=== PATIENT | female | born 1970 | race Caucasian/White ===

== ENCOUNTER → 2018-02-27 11:41 | Outpatient (CLI) | payer BC, SELFPAY ==
--- NOTE | 2018-02-27 11:45 | XR_ITS ---
XR ankle RT min 3V HISTORY: Pain following injury ITS.REASON: Injury right ankle ORDERING PHYSICIAN: GILDA Mcginnis PATIENT AGE: 47 years FINDINGS: There is a nondisplaced oblique fracture of the distal shaft of the fibula exiting at the level the ankle joint. The ankle mortise does not appear widened. There is nondisplaced avulsion fracture involving the tip of the medial malleolus. IMPRESSION: 1. Nondisplaced oblique fracture distal fibula with associated avulsion fracture of the tip of the medial malleolus
--- NOTE | 2018-02-27 11:45 | XR_ITS ---
XR tibia fibula RT 2V CLINICAL INDICATION: Pain following injury ITS.REASON: Injury right ankle ORDERING PHYSICIAN: GILAD Mcginnis PATIENT AGE: 47 years FINDINGS: There is nondisplaced oblique fracture of the distal fibula exiting medially at the level of the ankle joint with an associated nondisplaced avulsion fracture at the tip of the medial malleolus. The proximal mid aspect of the tibia and fibula have an unremarkable appearance. IMPRESSION: Nondisplaced oblique distal fibular fracture and avulsion fracture of the medial malleolus
== END ==
PROVIDERS: PCP Physician Assistant; Visit Provider Physician Assistant
DX: S99.911A Unspecified injury of right ankle, initial encounter (principal)
CPT/HCPCS: 73590; 73610

== ENCOUNTER → 2018-03-01 10:48 | Outpatient (CLI) | payer BC, SELFPAY ==
--- NOTE | 2018-03-01 11:04 | XR_ITS ---
XR ankle RT min 3V HISTORY: Follow-up fracture ITS.REASON: Right ankle fracture xray in cast ORDERING PHYSICIAN: Lc Avila MD PATIENT AGE: 47 years COMPARISON: 02/27/2018 FINDINGS: Study is obtained through a cast. Nondisplaced oblique distal fibular fracture and nondisplaced avulsion fracture tip of the medial malleolus once again noted. There remains good alignment. IMPRESSION: Good alignment status post placement of a cast of the distal fibular and medial malleolus fracture
== END ==
PROVIDERS: PCP Physician Assistant; Visit Provider Orthopaedic Surgery
DX: S82.301A Unspecified fracture of lower end of right tibia, initial encounter for closed fracture (principal)
CPT/HCPCS: 73610

== ENCOUNTER → 2018-03-08 12:07 | Outpatient (CLI) | payer BC, SELFPAY ==
--- NOTE | 2018-03-08 12:08 | XR_ITS ---
XR ankle RT min 3V HISTORY: Follow-up fracture ITS.REASON: 1 week follow up from being casted ORDERING PHYSICIAN: Lc Avila MD PATIENT AGE: 47 years COMPARISON: 03/01/2018 FINDINGS: There is an oblique mildly displaced fracture involving the distal aspect of the fibula as previously described. No significant callus formation. There is good alignment. Study is obtained through a cast. Avulsion fracture of the tip of the medial malleolus probably simple IMPRESSION: Overall no change minimal displaced oblique fibular fracture
== END ==
LOC: RAD 12:08
PROVIDERS: PCP Physician Assistant; Visit Provider Orthopaedic Surgery
DX: S82.301A Unspecified fracture of lower end of right tibia, initial encounter for closed fracture (principal)
CPT/HCPCS: 73610

== ENCOUNTER → 2018-03-16 10:54 | Outpatient (CLI) | payer BC, SELFPAY ==
--- NOTE | 2018-03-16 11:05 | XR_ITS ---
XR ankle RT min 3V Ordering Physician: Lc Avila MD Patient Age: 47 years: Female HISTORY: ITS.REASON: visualize ankle fracture TECHNIQUE: 3 views right ankle COMPARISON :03/08/2018 right ankle series. & 02/27/2018 FINDINGS Cast is been removed with today's study. A stable oblique fracture at the distal fibula again noted . Stable mild distraction & Mild cortical offset. At this fracture. Suspect very early healing. Position and alignment appear stable. The tibial-fibular relationships appear satisfactory. Relationships ankle mortise appear satisfactory. Associated very subtle fracture at the tip of the medial malleolus is again noted stable position. Swelling about the ankle has diminished since earlier studies Generous spurring at insertion Achilles tendon as well as a plantar calcaneal spur again noted. Unchanged IMPRESSION: . Stable position of oblique fracture distal fibula and the tiny fracture off tip of medial malleolus .. hint of very early healing at the distal fibular fracture.
== END ==
PROVIDERS: PCP Physician Assistant; Visit Provider Orthopaedic Surgery
DX: S99.911A Unspecified injury of right ankle, initial encounter (principal)
CPT/HCPCS: 73610

== ENCOUNTER → 2018-03-29 10:56 | Outpatient (CLI) | payer BC, SELFPAY ==
--- NOTE | 2018-03-29 10:59 | XR_ITS ---
XR ankle RT min 3V HISTORY: Follow-up fracture ITS.REASON: RIGHT ANKLE FX ORDERING PHYSICIAN: Lc Avila MD PATIENT AGE: 47 years Comparison: 03/16/2018 FINDINGS: Minimally displaced oblique fracture once again noted involving the distal aspect of the fibula. The distal fracture fragment is displaced laterally x 2 mm as before. Fracture line appears somewhat less apparent suggesting early healing. There is good alignment. Nondisplaced avulsion fracture of the tip of the medial malleolus once again noted. IMPRESSION: Healing oblique distal fibular fracture. Nondisplaced avulsion fracture tip of the medial malleolus
== END ==
PROVIDERS: PCP Physician Assistant; Visit Provider Orthopaedic Surgery
DX: S82.301A Unspecified fracture of lower end of right tibia, initial encounter for closed fracture (principal)
CPT/HCPCS: 73610

== ENCOUNTER 2018-03-29 11:59 | Outpatient (RCR) | payer BC, SELFPAY | END 2018-03-29 15:53 | disposition home or self-care (01) | LOC: PT 11:59 | PROVIDERS: Family Provider Physician Assistant; PCP Physician Assistant; Visit Provider Orthopaedic Surgery | DX: S82.301A Unspecified fracture of lower end of right tibia, initial encounter for closed fracture (principal) | CPT/HCPCS: 97760 ==

== ENCOUNTER → 2018-05-01 09:48 | Outpatient (CLI) | payer BC, SELFPAY ==
--- NOTE | 2018-05-01 09:50 | XR_ITS ---
XR ankle RT min 3V HISTORY: Follow-up fracture ITS.REASON: RT ankle fracture ORDERING PHYSICIAN: Lc Avila MD PATIENT AGE: 48 years Comparison: 03/29/2018 FINDINGS: Healing nondisplaced oblique fracture involves the distal fibula as before. No significant callus formation. Fracture line is somewhat obscured however. IMPRESSION: Overall no change healing distal fibular fracture nondisplaced
== END ==
PROVIDERS: PCP Physician Assistant; Visit Provider Orthopaedic Surgery
DX: S82.301A Unspecified fracture of lower end of right tibia, initial encounter for closed fracture (principal)
CPT/HCPCS: 73610

== ENCOUNTER 2019-05-04 13:34 | Observation (INO) ==
--- NOTE | 2019-05-04 13:55 | Emergency Department Note ---
ED Disposition Clinical Impression: Chest pain, Hypertension, Hypothyroid, Cameron's thyroiditis Disposition: Still a Patient Condition on Discharge: Fair Referrals: Shobha Loomis PA [Primary Care Provider] - - Critical Care Critical Care Time: No Attestation: On 05/04/19, the high probability of a clinically significant, sudden or life threatening deterioration of the following system(s) required my full and direct attention, intervention and personal management. The time I documented below is in addition to time spent performing reported procedures but includes the following listed in this critical care notation. Medical Decision Making - Gee Inquiry Pt receiving controlled substance: No Gee was queried for this patient: No Vital Signs: 05/04/19 13:37 05/04/19 14:05 05/04/19 14:26 Temperature 97.9 F Temperature Source Oral Pulse Rate [Right Brachial] 78 69 Respiratory Rate 20 68 H Blood Pressure [Right Arm] 193/105 H 150/111 H 150/83 H Blood Pressure Mean [Right Arm] 134 124 105 Blood Pressure Source [Right Arm] Automatic Cuff Blood Pressure Position [Right Arm] Sitting 02 Sat by Pulse Oximetry 97 100 100 Oxygen Delivery Method Room Air 05/04/19 14:51 05/04/19 15:48 05/04/19 16:12 Temperature Temperature Source Pulse Rate [Right Brachial] 64 63 66 Respiratory Rate Blood Pressure [Right Arm] 137/82 149/82 H 135/82 Blood Pressure Mean [Right Arm] 100 104 99 Blood Pressure Source [Right Arm] Blood Pressure Position [Right Arm] 02 Sat by Pulse Oximetry 99 98 95 Oxygen Delivery Method - Lab Data Lab Results 05/04/19 13:44: WBC 7.3, RBC 4.78, Hgb 13.6, Hct 42.0, MCV 87.9, MCH 28.4, MCHC 32.3, RDW 12.4, Plt Count 306, MPV 6.9 L, Neut % (Auto) 56.5, Lymph % (Auto) 36.0, [place] % (Auto) 4.6, Eos % (Auto) 2.0, Baso % (Auto) 0.9, Neut # (Auto) 4.1, Lymph # (Auto) 2.6, [place] # (Auto) 0.3, Eos # (Auto) 0.1, Baso # (Auto) 0.1 05/04/19 13:44: Sodium 140, Potassium 3.8, Chloride 104, Carbon Dioxide 25, Anion Gap 14.8, BUN 16, Creatinine 0.94, Estimated Creat Clear 106, Estimated GFR 63, Est GFR ( Amer) 76, Glucose 101, Calcium 9.5, Troponin I < 0.02, TSH 3.84 H, Free T4 Index 1.9 L, Thyroxine (T4) 6.0, T3 Uptake 31 05/04/19 13:44: B-Natriuretic Peptide 11 05/04/19 13:44: Total Bilirubin 0.3, Direct Bilirubin 0.1, Indirect Bilirubin 0.2, AST 20, ALT 44, Alkaline Phosphatase 88, Total Protein 7.7, Albumin 3.8 05/04/19 13:44: PT 9.9, INR 0.95, APTT 27.1 05/04/19 13:44: D-Dimer < 100 Result diagrams: 05/04/19 13:44 05/04/19 13:44 Orders (Tests/Meds): ED MEDICATIONS Generic Name Dose Route Start Last Admin Trade Name Christian PRN Reason Stop Dose Admin Aspirin 325 mg 05/05/19 09:00 05/04/19 14:13 Aspirin Ec 325mg Tablet PO 06/04/19 08:59 325 mg DAILY SAMANTHA Administration Sodium Chloride 2 ml 05/04/19 13:59 Saline Flush 10ml Syringe IV 06/03/19 13:58 NEEDED PRN to Dilute Lorazepam inj Sodium Chloride 10 ml 05/04/19 13:59 Saline Flush 10ml Syringe IV 06/03/19 13:58 NEEDED PRN Maintain IV Site Discontinued Medications Generic Name Dose Route Start Last Admin Trade Name Christian PRN Reason Stop Dose Admin Sodium Chloride 1,000 mls @ 500 mls/hr 05/04/19 14:00 05/04/19 14:13 Sod Chlor 0.9% 1000ml Bag IV 05/04/19 15:59 500 mls/hr .Q2H SAMANTHA Administration Ioversol 70 ml 05/04/19 15:19 05/04/19 15:21 Rad-Optiray 350 100ml Vial IV 05/04/19 15:20 70 ml ONCE ONE Administration Protocol Lorazepam 1 mg 05/04/19 13:59 05/04/19 14:13 Ativan 2mg/Ml Vial IV 05/04/19 14:00 1 mg ONCE ONE Administration Nitroglycerin 0.5 gm 05/04/19 13:59 05/04/19 14:13 Nitroglycerin 1 Inch Oint Udp TD 05/04/19 14:00 0.5 gm ONCE ONE Administration Sodium Chloride 10 ml 05/04/19 15:19 05/04/19 15:21 Rad-Saline Flush 10ml Syringe IV 05/04/19 15:20 10 ml ONCE ONE Administration Sodium Chloride 50 ml 05/04/19 15:19 05/04/19 15:21 Rad-Ns 50ml Vial IV 05/04/19 15:20 50 ml ONCE ONE Administration ORDERS Category Date Time Status CT Chest w/PE protocol [CT angio chest] Stat Cat Scan 05/04/19 14:01 Taken - Radiology Data #1 Image(s): Chest Image Reviewed: Yes I reviewed the patient's radiology image - ECG Data Tracing #1 Patient EKG was normal sinus 74/min baseline artifact no acute ST segment or T wave changes. ECG initial impression date: 05/04/19 ECG initial impression time: 13:35 Medical Decision Narrative: She received enteric-coated aspirin Nitropaste and Ativan 1 mg with gradual decline of her systolic blood pressure to 135mmhg. also her chest pain was reduced to 2/10. Admitted to the nursing staff that she has been taking her thyroid medicine. [address] Alcantara was covering for Dr. Shipman who agreed to admit the patient for rule out MA and blood pressure monitoring. Chest Pain HPI - General Chief Complaint: Chest Pain Stated Complaint: MID BACK PAIN RADIATING TO RIGHT CHEST Time Seen by Provider: 05/04/19 13:40 Mode of Arrival: Ambulatory Source of Information: Patient, Spouse Limitations: No Limitations Description of Symptoms (Recalled from ER Triage Doc. by RN): C/O MID BACK PAIN SINCE THIS AM WITH RADIATION TO MIDCHEST/RIGHT CHEST AND OCCASIONALLY NUMBNESS OF JAW. HASNT TAKEN THYROID DIRECTED FOR LAST SEVERAL WEEKS DUE TO RAPID HEARTRATE - History of Present Illness HPI narrative: 49 years old white female non smoker with history of hypothyroidism and surgical menopause. Today at 830 the patient developed mid back pain tight in character radiating was worse with bilateral upper extremity movement and relieved by rest. 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 ED the patient's blood pressure systolic was 193/105 mmhg. Pain was rated 5/10 and was reduced by nitroglycerin, Ativan and aspirin to 4/10. Patient is currently under a lot of stress and she wanted to be checked. MD complaint: chest pain Onset (ago): hour(s) Time: 08:30 Duration: constant Pain location: right chest Severity: moderate Severity scale (1-10): 8 Quality: dull Pain radiation: RUE - Related Data Allergies Allergy/AdvReac Type Severity Reaction Status Date / Time Penicillins Allergy Intermediate FACIAL Verified 02/14/19 10:46 FLUSHING, HIVES, RASH [facility] History - Hepatitis A Screen Drug use history?: No High risk sexual behaviors?: No History of sexually transmitted infection?: No Currently employed?: No Childcare worker?: No Do you have indoor plumbing?: Yes Do you have electricity?: Yes Attestation statement:: This patient has been screened for Hepatitis A risk factors. I have reviewed the patient's past medical history: Yes Medical History: Reports:: Hyperlipidemia Other Medical History: Reports: Hypothyroidism Other Surgeries: Yes: , Hysterectomy-Total, Other Amputation: No Fractures: Yes Comment: Ovarian wedge-1992 - Social History Smoking Status: Never smoker Alcohol Intake: never Occupational Status: employed Housing: house Household Members: family Family Hx:: Diabetes, Stroke, Heart Attack, Hyperlipidemia, Hypertension, Coronary Artery Disease ROS Obtained: Yes All systems reviewed & no additional complaints Physical Exam - General General appearance: alert, in no apparent distress, anxious, other (Patient is tearful.) - Head Head exam: atraumatic, normocephalic, normal inspection - Eye Eye exam: Present: normal appearance, PERRL, EOMI - ENT ENT exam: Present: normal exam, normal oropharynx, mucous membranes moist, TM's normal bilaterally, normal external ear exam - Neck Neck exam: Present: normal inspection, full ROM, trachea midline. Absent: meningismus, lymphadenopathy - Chest Chest inspection: Present: normal inspection, symmetric chest wall rise. Absent: tenderness - Respiratory Respiratory exam: Present: normal lung sounds bilaterally. Absent: respiratory distress - Cardiovascular Cardiovascular exam: Present: regular rate, normal rhythm. Absent: JVD - Abdominal Exam Abdominal exam: Present: soft, normal bowel sounds. Absent: distention, tenderness, guarding - Extremities Exam Extremities exam: Present: normal inspection, full ROM, normal capillary refill. Absent: calf tenderness - Back Exam Back exam: Present: normal inspection. Absent: tenderness - Neurological Exam Neurological exam: Present: alert, oriented X3 - Psychiatric Psychiatric exam: Present: normal affect, normal mood - Skin Skin exam: Present: warm, dry, intact, normal color - Lymphatic Lymphatic Findings: no adenopathy
[2019-05-04 14:40] LABS: Basophils # 0.1 K/mm3 (0-0.2); Basophils % 0.9 % (0.1-2.0); Eosinophils # 0.1 K/mm3 (0.0-0.4); Hemoglobin 13.6 g/dL (12.2-16.2); Lymphocytes # 2.6 K/mm3 (0.7-4.5); Mean Corpuscular HGB Conc 32.3 g/dL (31.8-35.4); Mean Corpuscular Volume 87.9 fl (81-99); Mean Platelet Volume 6.9 fl (7.4-10.4); Monocytes # 0.3 K/mm3 (0.1-1.0); Monocytes % 4.6 % (1.7-9.3); Neutrophils # 4.1 K/mm3 (1.8-7.8); Neutrophils % 56.5 % (37.0-80.0); Platelet Count 306 K/mm3 (142-424); Red Blood Count 4.78 M/mm3 (4.20-5.40); Red Cell Distribution Width 12.4 % (11.5-17.5); White Blood Count 7.3 K/mm3 (4.8-10.8)
[2019-05-04 14:42] LABS: Activated Partial Thrombo Time 27.1 seconds (23.6-34.0); INR 0.95 (0.9-1.1); Prothrombin Time 9.9 seconds (9.4-11.8)
[2019-05-04 14:48] LABS: Albumin Level 3.8 gm/dL (3.4-5.0); Bilirubin,Direct 0.1 mg/dL (0.0-0.2); Bilirubin,Indirect 0.2 mg/dL (0.0-0.9); Bilirubin,Total 0.3 mg/dL (0.2-1.0); Total Protein,Serum 7.7 gm/dL (6.4-8.2)
[2019-05-04 14:53] LABS: Anion Gap 14.8 mEq/L (5-15); Blood Urea Nitrogen 16 mg/dL (7-18); Calcium 9.5 mg/dL (8.5-10.1); Carbon Dioxide 25 mmol/L (21.0-32.0); Chloride 104 mmol/L (98-107); Free Thyroxine Index 1.9 ug/dL (5.93-13.13); Glucose 101 mg/dL (74-106); Sodium 140 mmol/L (136-145); Thyroid Stimulating Hormone 3.84 uIU/ml (0.358-3.740); Triiodothryronine (T3) Uptake 31 % (31-39)
[2019-05-04 19:29] LABS: Microscopic, Urine URINE MICROSCOPIC (MICROSCOPIC)
[2019-05-04 19:40] LABS: Appearance,Urine CLEAR (Clear); Bilirubin,Urine Negative (Negative); Blood, Urine Negative (Negative); Color,Urine YELLOW (Yellow); Glucose,Urine (UA) Negative (Negative); Ketones,Urine Negative (Negative); Leukocyte Esterase,Urine Negative (Negative); PH,Urine 6.5 (5.0-8.5); Protein,Urine Negative (Negative); Specific Gravity, Urine <= 1.005 (1.005-1.030); Urobilinogen,Urine 0.2 EU/dl (0.2)
--- NOTE | 2019-05-04 20:29 | H&P/Discharge Summary ---
General - General Admission date:: 05/04/19 Discharge date: 05/04/19 *Admission Date: 05/04/19 *Chief complaint: Chest pain *History of present illness: 49-year-old white female with significant medical history of possible Cameron's thyroid disease. 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 Jean Baptiste's office and [place], [place]. She was placed on "natural thyroid" and a patch containing "natural female hormones" and she reportedly did well on this with normalized TSH. However, over the past year her job took her to [place] for several weeks and she stopped taking her medications. She is now back in the [facility] area but has not resumed any medications. Earlier this morning she had a very unusual but severe episode of back pain in the mid back that went to the front of her chest after her massaged her back in an attempt to relieve the pain, and she had some palpitations and understandable anxiety and came to the emergency department. Emergency work-up was extensive including laboratory studies that were normal including normal d-dimer, normal initial troponin testing and normal metabolic and hematologic labs, CT scan of chest was done to rule out PE because of her significant history of chest pain which was negative but revealed presence of a renal cyst. This prompted a CT of the abdomen and pelvis which showed unilateral hydronephrosis and probable dysfunction of the right kidney with a severely cystic kidney and hydronephrosis down to the right ureter. The left side looked fairly normal. Of note, patient is unaware of this diagnosis in the past. Patient was admitted to the hospital because of her "high risk status" in the opinion of the ER doctor. [facility] History I have reviewed the patient's past medical history: Yes Medical History: Reports:: Hyperlipidemia Denies:: Cancer, Diabetes Mellitus Type 1, Diabetes Mellitus Type 2, MRSA *Have you ever received a pneumonia vaccine?: No *Have you received a flu vaccine this season?: Yes Other Medical History: Reports: Hypothyroidism, Thyroid Disease Comment:: Estrogen deficiency Other Surgeries: Yes: , Hysterectomy-Total, Other Amputation: No Fractures: Yes - *Social History Educational Level: Completed College Smoking Status: Never smoker Alcohol Intake: never *Occupational Status:: employed Housing: house Household Members: family *Travel in the last 8 weeks: Inside the [place] - Psychiatric History Expresses thoughts of harming self/others: None Suicide Plan Description: No Plan Family Hx:: Diabetes, Stroke, Heart Attack, Hyperlipidemia, Hypertension, Coronary Artery Disease Review of Systems - Review of Systems Review of systems:: pertinent systems reviewed and negative unless documented below Negative for ENT symptomatology or rhinitis symptoms. Negative for pulmonary symptoms of shortness of air, cough or wheezing. Positive for chest pain as noted above, this has been complete relieved with a Toradol injection that I recommended to be given in the ER. GI negative for vomiting, diarrhea, constipation or stool changes. 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 Musculoskeletal positive for chest wall pain as noted above, Derm negative for rash. Exam Vital signs and Labs for Last 24 Hours: Temp Pulse Resp BP Pulse Ox 97.6 F 71 17 146/81 H 96 05/04/19 20:00 05/04/19 20:00 05/04/19 20:00 05/04/19 20:00 05/04/19 20:00 Laboratory Results - last 24 hr 05/04/19 13:44: WBC 7.3, RBC 4.78, Hgb 13.6, Hct 42.0, MCV 87.9, MCH 28.4, MCHC 32.3, RDW 12.4, Plt Count 306, MPV 6.9 L, Neut % (Auto) 56.5, Lymph % (Auto) 36.0, [place] % (Auto) 4.6, Eos % (Auto) 2.0, Baso % (Auto) 0.9, Neut # (Auto) 4.1, Lymph # (Auto) 2.6, [place] # (Auto) 0.3, Eos # (Auto) 0.1, Baso # (Auto) 0.1 05/04/19 13:44: Sodium 140, Potassium 3.8, Chloride 104, Carbon Dioxide 25, Anion Gap 14.8, BUN 16, Creatinine 0.94, Estimated Creat Clear 106, Estimated GFR 63, Est GFR ( Amer) 76, Glucose 101, Calcium 9.5, Troponin I < 0.02, TSH 3.84 H, Free T4 Index 1.9 L, Thyroxine (T4) 6.0, T3 Uptake 31 05/04/19 13:44: B-Natriuretic Peptide 05/04/19 13:44: Total Bilirubin 0.3, Direct Bilirubin 0.1, Indirect Bilirubin 0.2, AST 20, ALT 44, Alkaline Phosphatase 88, Total Protein 7.7, Albumin 3.8 05/04/19 13:44: PT 9.9, INR 0.95, APTT 27.1 05/04/19 13:44: D-Dimer < 100 05/04/19 17:27: Urine Color Yellow, Urine Appearance Clear, Urine pH 6.5, Ur Specific [place] <= 1.005, Urine Protein Negative, Urine Glucose (UA) Negative, Urine Ketones Negative, Urine Blood Negative, Urine Nitrate Negative, Urine Bilirubin Negative, Urine Urobilinogen 0.2, Ur Leukocyte Esterase Negative, Urine WBC 3-5 I & O for Last 24 hours: Intake & Output 05/02/19 05/03/19 05/04/19 05/05/19 11:59 11:59 11:59 11:59 Intake Total 240 / 240 Output Total 900 / 900 Balance -660 / -660 Weight 204 lb 3 oz Narrative: Patient is pleasant, talkative in no distress, denies pain at the time of my exam. Appears younger than her stated age, good dentition and good hygiene Lungs are clear. Heart rate regular. No murmurs, no edema or clubbing. Abdomen soft and nontender. Neurologic exam nonfocal. No JVD. No rash. Hospital Course Hospital Course: Patient was admitted even after the negative work-up in the ER. I examined her, her pain is totally resolved with NSAID treatment. I had a long discussions with her about her need to establish care with internal medicine and she is agreement that this needs to be done and she will establish care with our practice in the next week and a half and I have scheduled an viri ointment. I informed her about her CT scan results in regards to her kidney-she was unaware of this. I informed her we would make a urology appointment in the office. I have advised her to use warm compresses, topical analgesics such as Biofreeze and Tylenol for pain given her unknown kidney status at this point. Ordered another troponin and should this be negative since this will be 12 hours after the onset of her pain she will be discharged home. I anticipate this to be the case and do not feel that she has cardiac disease in any way shape or form. Results Labs on day of discharge: Labs from last 24 hours 05/04/19 05/04/19 05/04/19 17:27 13:44 13:44 WBC RBC Hgb Hct MCV MCH MCHC RDW Plt Count MPV Neut % (Auto) Lymph % (Auto) [place] % (Auto) Eos % (Auto) Baso % (Auto) Neut # (Auto) Lymph # (Auto) [place] # (Auto) Eos # (Auto) Baso # (Auto) PT 9.9 INR 0.95 APTT 27.1 D-Dimer < 100 Sodium Potassium Chloride Carbon Dioxide Anion Gap BUN Creatinine Estimated Creat Clear Estimated GFR Est GFR ( Amer) Glucose Calcium Total Bilirubin Direct Bilirubin Indirect Bilirubin AST ALT Alkaline Phosphatase Troponin I B-Natriuretic Peptide Total Protein Albumin TSH Free T4 Index Thyroxine (T4) T3 Uptake Urine Color Yellow Urine Appearance Clear Urine pH 6.5 Ur Specific [place] <= 1.005 Urine Protein Negative Urine Glucose (UA) Negative Urine Ketones Negative Urine Blood Negative Urine Nitrate Negative Urine Bilirubin Negative Urine Urobilinogen 0.2 Ur Leukocyte Esterase Negative Urine WBC 3-5 05/04/19 05/04/19 05/04/19 13:44 13:44 13:44 WBC RBC Hgb Hct MCV MCH MCHC RDW Plt Count MPV Neut % (Auto) Lymph % (Auto) [place] % (Auto) Eos % (Auto) Baso % (Auto) Neut # (Auto) Lymph # (Auto) [place] # (Auto) Eos # (Auto) Baso # (Auto) PT INR APTT D-Dimer Sodium 140 Potassium 3.8 Chloride 104 Carbon Dioxide 25 Anion Gap 14.8 BUN 16 Creatinine 0.94 Estimated Creat Clear 106 Estimated GFR 63 Est GFR ( Amer) 76 Glucose 101 Calcium 9.5 Total Bilirubin 0.3 Direct Bilirubin 0.1 Indirect Bilirubin 0.2 AST 20 ALT 44 Alkaline Phosphatase 88 Troponin I < 0.02 B-Natriuretic Peptide 11 Total Protein 7.7 Albumin 3.8 TSH 3.84 H Free T4 Index 1.9 L Thyroxine (T4) 6.0 T3 Uptake 31 Urine Color Urine Appearance Urine pH Ur Specific [place] Urine Protein Urine Glucose (UA) Urine Ketones Urine Blood Urine Nitrate Urine Bilirubin Urine Urobilinogen Ur Leukocyte Esterase Urine WBC 05/04/19 13:44 WBC 7.3 RBC 4.78 Hgb 13.6 Hct 42.0 MCV 87.9 MCH 28.4 MCHC 32.3 RDW 12.4 Plt Count 306 MPV 6.9 L Neut % (Auto) 56.5 Lymph % (Auto) 36.0 [place] % (Auto) 4.6 Eos % (Auto) 2.0 Baso % (Auto) 0.9 Neut # (Auto) 4.1 Lymph # (Auto) 2.6 [place] # (Auto) 0.3 Eos # (Auto) 0.1 Baso # (Auto) 0.1 PT INR APTT D-Dimer Sodium Potassium Chloride Carbon Dioxide Anion Gap BUN Creatinine Estimated Creat Clear Estimated GFR Est GFR ( Amer) Glucose Calcium Total Bilirubin Direct Bilirubin Indirect Bilirubin AST ALT Alkaline Phosphatase Troponin I B-Natriuretic Peptide Total Protein Albumin TSH Free T4 Index Thyroxine (T4) T3 Uptake Urine Color Urine Appearance Urine pH Ur Specific [place] Urine Protein Urine Glucose (UA) Urine Ketones Urine Blood Urine Nitrate Urine Bilirubin Urine Urobilinogen Ur Leukocyte Esterase Urine WBC DS: Diagnosis - Discharge Diagnosis (1) Hydronephrosis of right kidney Status: Chronic (2) Chest pain Status: Resolved (3) Hypothyroid Status: Chronic Discharge Plan - Patient Discharge Instructions ACTIVITY: Continue current activity DIET: continue same diet - Follow up Plan Follow up with: Liz Proctor APRN [Nurse Practitioner] - 05/15/19 9:00 am Disposition: Home, [facility] Medications: Home Medications Medication Instructions Recorded Confirmed Type Aspirin [Aspirin 81mg EC Tab] 81 mg PO DAILY tablet. 05/04/19 Rx Prescriptions/Medication Reconciliation: New Aspirin [Aspirin 81mg EC Tab] 81 mg PO DAILY tablet.
[2019-05-04 20:59] LABS: Creatine Kinase 123 U/L (26-192)
== END 2019-05-05 01:06 | disposition home or self-care (01) ==
LOC: ER 13:34 → 2ND 13:34
PROVIDERS: ADMIT Internal Medicine Adolescent Medicine; ATTEND Internal Medicine Adolescent Medicine
CPT/HCPCS: 36415; 71020; 71046; 71275; 74176; 80048; 80076; 81001; 82550; 82553; 83880; 84436; 84443; 84479; 84484; 85025; 85378; 85610; 85730; 93005; 96365; 96375; 99285; G0378; Q9967

== ENCOUNTER → 2019-05-23 14:16 | Outpatient (CLI) | payer BC, SELFPAY ==
[2019-05-23 14:40] LABS: Anion Gap 13.7 mEq/L (5-15); Blood Urea Nitrogen 12 mg/dL (7-18); Calcium 9.4 mg/dL (8.5-10.1); Carbon Dioxide 30 mmol/L (21.0-32.0); Chloride 104 mmol/L (98-107); Estimated Glomerular Filt Rate 58 ml/min (>60); GFR (African American) 71 ML/MIN (>60); Glucose 98 mg/dL (74-106); Potassium 3.7 mmoL/L (3.5-5.1); Sodium 144 mmol/L (136-145)
== END ==
PROVIDERS: Visit Provider Physician Assistant
DX: I10 Essential (primary) hypertension (principal)
CPT/HCPCS: 80048

== ENCOUNTER → 2019-06-06 14:04 | Outpatient (CLI) | payer BC, SELFPAY ==
[2019-06-06 14:56] LABS: Anion Gap 13.9 mEq/L (5-15); Blood Urea Nitrogen 10 mg/dL (7-18); Calcium 9.8 mg/dL (8.5-10.1); Carbon Dioxide 28 mmol/L (21.0-32.0); Chloride 106 mmol/L (98-107); Estimated Glomerular Filt Rate 58 ml/min (>60); GFR (African American) 71 ML/MIN (>60); Glucose 100 mg/dL (74-106); Potassium 4.9 mmoL/L (3.5-5.1); Sodium 143 mmol/L (136-145)
[2019-06-09 16:34] LABS: Microalbumin, Urine 3.3 ug/mL (Not Estab.)
== END ==
PROVIDERS: Visit Provider Physician Assistant
DX: I10 Essential (primary) hypertension (principal)
CPT/HCPCS: 80048; 82043

== ENCOUNTER → 2022-03-29 09:32 | Outpatient (CLI) | payer BC, SELFPAY ==
[2022-03-29 19:25] LABS: Alanine Aminotransferase 36 U/L (12-78); Albumin/Globulin Ratio 1.3 (1.1-1.8); Alkaline Phosphatase 101 U/L (38-126); Anion Gap 10.4 mEq/L (5-15); Aspartate Amino Transferase 30 U/L (14-36); Bilirubin,Total 0.3 mg/dl (0.2-1.3); Blood Urea Nitrogen 11 mg/dl (7-17); Calcium 9.8 mg/dl (8.4-10.2); Carbon Dioxide 29 mmol/L (22.0-30.0); Chloride 104 mmol/L (98-107); Chol/HDL Ratio 5.5 (1-3.5); Cholesterol 258 mg/dl (140-200); Estimated Glomerular Filt Rate 75 ml/min (>60); GFR (African American) 91 ML/MIN (>60); Globulin 3.2 g/dL (1.3-3.2); Glucose 101 mg/dl (74-100); HDL Cholesterol 47 mg/dl (40-60); Potassium 4.4 mmoL/L (3.5-5.1); Sodium 139 mmol/L (136-145); Total Protein,Serum 7.2 g/dl (6.3-8.2); Triglycerides 120 mg/dl (30-150); VLDL Cholesterol 24 mg/dL (0-40)
[2022-03-29 19:33] LABS: Basophils # 0.3 K/mm3 (0-0.2); Basophils % 2.7 % (0.1-2.0); Eosinophils # 0.4 K/mm3 (0.0-0.4); Eosinophils % 4.1 % (0.1-12.0); Hematocrit 40.2 % (37.0-47.0); Hemoglobin 13.3 g/dL (12.2-16.2); Lymphocytes # 2.1 K/mm3 (0.7-4.5); Mean Corpuscular Hemoglobin 31.2 pg (27.0-31.2); Mean Corpuscular Volume 94.3 fl (81-99); Monocytes # 0.4 K/mm3 (0.1-1.0); Monocytes % 4.5 % (1.7-9.3); Neutrophils % 65.6 % (37.0-80.0); Platelet Count 383 K/mm3 (142-424); Red Blood Count 4.27 M/mm3 (4.20-5.40); White Blood Count 9.2 K/mm3 (4.8-10.8)
[2022-03-29 19:36] LABS: C-Reactive Protein 14.4 mg/L (0-4); Direct LDL Cholesterol 162.11 mg/dL (100-129)
[2022-03-29 19:42] LABS: Free Thyroxine Index 2.6 ug/dL (5.93-13.13); T4 (Thyroxine) 8.4 ug/dl (5.53-11.0); Triiodothryronine (T3) Uptake 31 % (23.5-40.5)
[2022-03-29 19:43] LABS: 25-OH Vitamin D, Total 39.9 ng/mL (30-100)
[2022-03-29 19:56] LABS: Thyroid Stimulating Hormone 2.25 uIU/mL (0.465-4.68)
[2022-03-29 20:15] LABS: Vitamin B12 660 pg/mL (239-931)
[2022-03-31 08:22] LABS: RA Latex Turbid. <10.0 IU/mL (<14.0); Thyroid Peroxidase Antibodies <8 IU/mL (0-34)
[2022-03-31 14:34] LABS: Anti-Centromere B Antibodies <0.2 AI (0.0-0.9); Anti-DNA (DS) Ab Qn <1 IU/mL (0-9); Anti-Jo-1 <0.2 AI (0.0-0.9); Anti-Smith Antibody <0.2 AI (0.0-0.9); Antichromatin Antibodies <0.2 AI (0.0-0.9); Antiscleroderma-70 Antibodies <0.2 AI (0.0-0.9); RNP Antibodies <0.2 AI (0.0-0.9); Sjogren's Anti-SS-A 0.2 AI (0.0-0.9); Sjogren's Anti-SS-B <0.2 AI (0.0-0.9)
[2022-04-01 01:21] LABS: Anti-Cyclic Citrullinated Pept 9 units (0-19)
[2022-04-01 08:15] LABS: Thyroid Stimulating Immunoglob <0.10 IU/L (0.00-0.55)
== END ==
PROVIDERS: PCP Physician Assistant; Visit Provider Physician Assistant
DX: Z00.00 Encounter for general adult medical examination without abnormal findings (principal); L98.9 Disorder of the skin and subcutaneous tissue, unspecified; I10 Essential (primary) hypertension; E66.9 Obesity, unspecified; Z68.38 Body mass index [BMI] 38.0-38.9, adult
CPT/HCPCS: 80053; 80061; 82306; 82607; 84436; 84443; 84445; 84479; 85025; 86140; 86200; 86225; 86235; 86376; 86431

== ENCOUNTER → 2022-04-13 08:52 | Outpatient (CLI) | payer BC, SELFPAY | PROVIDERS: Visit Provider Physician Assistant | DX: J02.9 Acute pharyngitis, unspecified (principal) | CPT/HCPCS: 87070 ==

== ENCOUNTER → 2022-06-28 15:44 | Outpatient (POV) | payer BC, SELFPAY | PROVIDERS: Visit Provider Dermatology | DX: Z00.00 Encounter for general adult medical examination without abnormal findings (principal) ==

== ENCOUNTER → 2022-09-08 14:20 | Outpatient (CLI) | payer BC, SELFPAY | PROVIDERS: PCP Nurse Practitioner Family; Visit Provider Nurse Practitioner Family | DX: R35.1 Nocturia (principal) | CPT/HCPCS: 87086 ==

== ENCOUNTER → 2022-11-15 09:30 | Outpatient (CLI) | payer BC, SELFPAY ==
[2022-11-15 17:26] LABS: Alanine Aminotransferase 30 U/L (12-78); Albumin Level 4.3 g/dl (3.5-5.0); Albumin/Globulin Ratio 1.5 (1.1-1.8); Alkaline Phosphatase 93 U/L (38-126); Anion Gap 11.2 mEq/L (5-15); Aspartate Amino Transferase 29 U/L (14-36); Bilirubin,Total 0.5 mg/dl (0.2-1.3); Blood Urea Nitrogen 12 mg/dl (7-17); Calcium 9.2 mg/dl (8.4-10.2); Carbon Dioxide 25 mmol/L (22.0-30.0); Chloride 108 mmol/L (98-107); Chol/HDL Ratio 5.9 (1-3.5); Cholesterol 255 mg/dl (140-200); Estimated Glomerular Filt Rate 75 ml/min (>60); GFR (African American) 90 ML/MIN (>60); Globulin 2.9 g/dL (1.3-3.2); Glucose 98 mg/dl (74-100); HDL Cholesterol 43 mg/dl (40-60); Potassium 4.2 mmoL/L (3.5-5.1); Sodium 140 mmol/L (136-145); Total Protein,Serum 7.2 g/dl (6.3-8.2); Triglycerides 252 mg/dl (30-150); VLDL Cholesterol 50 mg/dL (0-40)
[2022-11-15 17:36] LABS: Direct LDL Cholesterol 153.09 mg/dL (100-129)
[2022-11-15 17:42] LABS: Basophils # 0.1 K/mm3 (0-0.2); Basophils % 1.4 % (0.1-2.0); Eosinophils # 0.2 K/mm3 (0.0-0.4); Eosinophils % 2.9 % (0.1-12.0); Hematocrit 42.9 % (37.0-47.0); Lymphocytes # 1.8 K/mm3 (0.7-4.5); Lymphocytes % 30.2 % (10-50); Mean Corpuscular HGB Conc 32.7 g/dL (31.8-35.4); Mean Corpuscular Volume 91.7 fl (81-99); Mean Platelet Volume 8.9 fl (7.4-10.4); Monocytes # 0.4 K/mm3 (0.1-1.0); Monocytes % 6.4 % (1.7-9.3); Neutrophils # 3.5 K/mm3 (1.8-7.8); Platelet Count 353 K/mm3 (142-424); Red Blood Count 4.68 M/mm3 (4.20-5.40); White Blood Count 5.9 K/mm3 (4.8-10.8)
[2022-11-15 17:56] LABS: Thyroid Stimulating Hormone 2.59 uIU/mL (0.465-4.68)
[2022-11-15 19:33] LABS: Hemoglobin A1C 5.7 % (4.0-6.0)
== END ==
PROVIDERS: PCP Family Medicine; Visit Provider Family Medicine
DX: Z00.00 Encounter for general adult medical examination without abnormal findings (principal); I10 Essential (primary) hypertension; R53.83 Other fatigue; E03.9 Hypothyroidism, unspecified; M34.9 Systemic sclerosis, unspecified
CPT/HCPCS: 80053; 80061; 83036; 84443; 85025

== ENCOUNTER 2023-10-03 23:41 | Emergency (ER) | payer BC, SELFPAY ==
[2023-10-03 23:43] VITALS: BP 191/109; PULSE 75; RESP 20; TEMP 36.9; O2SAT 98; BMI 32.5
--- NOTE | 2023-10-03 23:46 | [facility].EDGENADL ---
Discharge Plan Disposition Patient Disposition: Home, Self-Care Prescriptions Prescriptions: New clindamycin HCl 150 mg capsule 450 mg PO TID 5 Days Qty: 45 0RF No Action vitamin B complex elixir 1 ea PO DAILY cholecalciferol (vitamin D3) [Vitamin D3] 125 mcg (5,000 unit) tablet 125 mcg PO DAILY lisinopril 10 mg tablet 10 mg PO .QOD and prn Rx Instructions: Take one tab every other day. Take on off days for elevated b/p Referrals Follow up/Referrals: Jaime Chacko MD [Primary Care Provider] - See instructions Activity Restrictions/Add. Instructions Additional Instructions/Restrictions: Please take antibiotics as prescribed. Please follow-up with your dentist. Clinical Impressions Clinical Impression: Dental infection Discharge ED Provider: Brooks Ingram General Adult HPI General Chief complaint: Dental/Oral Stated complaint: Left jaw painful and swollen Time Seen by Provider: 10/03/23 23:46 History of Present Illness HPI narrative: 53-year-old female, history as reported below presents with left-sided jaw pain she reports that she had a tooth pulled on Monday, 2 days ago, but it is becoming more painful and swollen. She denies any fevers at home. Denies any purulent drainage. Related Data Home Medications Medication Instructions Recorded Confirmed cholecalciferol (vitamin D3) 125 125 mcg PO DAILY 09/08/22 03/13/23 mcg (5,000 unit) tablet (Vitamin D3) vitamin B complex 1 ea PO DAILY 01/11/23 03/13/23 lisinopril 10 mg tablet 10 mg PO .QOD and prn 02/13/23 03/13/23 Previous Rx's Medication Instructions Recorded clindamycin HCl 150 mg capsule 450 mg PO TID 5 days #45 caps 10/04/23 Allergies Allergy/AdvReac Type Severity Reaction Status Date / Time Penicillins Allergy Intermediate FACIAL Verified 03/13/23 09:06 FL[facility] Disclaimer: The information contained in this section may have been updated after the patient was seen, as this information can be updated by other users. Medical History Ankle Injury Chest pain Depression Cameron's thyroiditis Hypertension Scleroderma Surgical History History of History of hysterectomy Family History Father Coronary artery disease Hypertension Stroke Mother Hypertension Thyroid disorder Diabetes Social History Smoking Status: Current every day smoker second hand exposure: No alcohol intake: never substance use type: denies use current occupational status: employed Travel in the last 8 weeks: None household members: family housing: house ROS Obtained: Yes All systems reviewed & no additional complaints except as documented Physical Exam General General appearance: alert and in no apparent distress Head Head exam: atraumatic and normocephalic Eye Eye exam: Present normal appearance, PERRL and EOMI ENT ENT exam: Present normal external ear exam and other (Mild left mandibular jaw swelling, no fluctuance felt. Erythema and tenderness noted over dental extraction site.) Neck Neck exam: Present normal inspection, full ROM and other (No swelling, no submandibular fullness); Absent lymphadenopathy Chest Chest inspection: Present normal inspection and symmetric chest wall rise; Absent tenderness Respiratory Respiratory exam: Present normal lung sounds bilaterally; Absent respiratory distress Cardiovascular Cardiovascular exam: Present regular rate and normal rhythm Abdominal Exam Abdominal exam: Present soft; Absent distention, tenderness or guarding Extremities Exam Extremities exam: Present normal inspection; Absent edema or joint swelling Back Exam Back exam: Present normal inspection; Absent tenderness Neurological
[2023-10-04 00:02] VITALS: BP 170/97; PULSE 77; RESP 18; O2SAT 98
[2023-10-04 00:07] VITALS: BP 170/97; PULSE 77; RESP 18; TEMP 36.8; O2SAT 97
== END 2023-10-04 00:08 | disposition home or self-care (01) ==
PROVIDERS: Emergency Provider Emergency Medicine; PCP Family Medicine
DX: R68.84 Jaw pain (principal); K04.7 Periapical abscess without sinus; M34.89 Other systemic sclerosis; E06.3 Autoimmune thyroiditis; I10 Essential (primary) hypertension; F17.200 Nicotine dependence, unspecified, uncomplicated
CPT/HCPCS: 99283